=== PATIENT | female | born 1935 | race Caucasian/White ===

== ENCOUNTER 2016-11-07 20:17 | Emergency (ER) | payer MEDICARE ==
[2016-11-07 20:44] VITALS: BP 149/61
--- NOTE | 2016-11-07 21:58 | UC ---
Laceration HPI - HPI Summary HPI Summary: 81 yo female a/p laceration about 7 pm when her cat scratched her her tetanus is reportedly UTD she is right handed - History Of Current Complaint Chief Complaint: UCBiteInjury Stated Complaint: HAND INJURY Time Seen by Provider: 11/07/16 21:41 Hx Obtained From: Patient Laceration Location: Hand Mechanism Of Injury: Sharp Trauma Severity: Mild Pain Intensity: 2 Pain Scale Used: 0-10 Numeric Aggravating Factors: Nothing - Allergies/Home Medications Allergies/Adverse Reactions: Allergies Allergy/AdvReac Type Severity Reaction Status Date / Time Sulfa Drugs Allergy Unknown Unknown Verified 11/07/16 20:44 Reaction Details PMH/Surg Hx/FS Hx/Imm Hx Previously Healthy: Yes Cardiovascular History: Hypertension Respiratory History: COPD - Surgical History Surgical History: Yes Surgery Procedure, Year, and Place: hysterectomy, - Family History Known Family History: Positive: Hypertension - Social History Alcohol Use: None Substance Use Type: None Smoking Status (MU): Former Smoker - Immunization History Most Recent Tetanus Shot: 2017 Review of Systems Constitutional: Negative Skin: Negative Eyes: Negative ENT: Negative Respiratory: Negative Cardiovascular: Negative Gastrointestinal: Negative Genitourinary: Negative Motor: Negative Neurovascular: Negative Musculoskeletal: Negative Neurological: Negative Psychological: Negative All Other Systems Reviewed And Are Negative: Yes Physical Exam Triage Information Reviewed: Yes Appearance: Well-Appearing, No Pain Distress, Well-Nourished Vital Signs: Initial Vital Signs Temp 98.1 F 11/07/16 20:38 Pulse 97 11/07/16 20:38 Resp 12 11/07/16 20:38 BP 149/61 11/07/16 20:38 Pulse Ox 94 11/07/16 20:38 Eyes: Positive: Conjunctiva Clear ENT: Positive: Hearing grossly normal. Negative: Nasal congestion, Nasal drainage, Trismus, Muffled/hoarse voice Neck: Positive: Supple Respiratory: Positive: Lungs clear, Normal breath sounds, No respiratory distress, No accessory muscle use Cardiovascular: Positive: RRR, No Murmur Neurological: Positive: Alert Psychological Exam: Normal Skin Exam: Other - see image Laceration Repair - Laceration Repair 1 Description: Linear : No Repair Necessary Laceration Size After Repair: Length (cm) - 2, Width (mm) - 2, Depth (mm) - 2 Laceration Course/Dx - Course/Dx Course Of Treatment: pt told me she has a pencillin allergy so augmentin not prescribed - Differential Dx - Laceration/Wound Provider Diagnoses: laceration right hand -not sutured Discharge - Discharge Plan Condition: Stable Disposition: HOME Prescriptions: DOXYcycline CAP(*) [DOXYcycline 100MG CAP(*)] 100 mg PO BID #10 cap Patient Education Materials: Laceration Without Closure (ED) Referrals: La Kapoor MD [Primary Care Provider] - 5 Days Additional Instructions: gently clean twice daily with soap and water apply thin film of antibiotic ointment ( I like aquaphor healing ointment) non stick dressing recheck for concerns of infection Images Hands: 1 - laceration
== END 2016-11-07 22:08 | disposition home or self-care (01) ==
LOC: UCEAST 20:17
DX: S61.411A Laceration without foreign body of right hand, initial encounter (principal); W55.03XA Scratched by cat, initial encounter; Z88.2 Allergy status to sulfonamides; I10 Essential (primary) hypertension; J44.9 Chronic obstructive pulmonary disease, unspecified; Z87.891 Personal history of nicotine dependence
CPT/HCPCS: 99212; G0463

== ENCOUNTER 2017-09-12 10:50 | Emergency (ER) | payer MEDICARE ==
[2017-09-12 12:07] VITALS: BP 159/74
--- NOTE | 2017-09-12 12:33 | UC ---
Upper Extremity HPI - HPI Summary HPI Summary: 2 weeks of increasing pain in both shoulder, left > right, with severe restriction of range of motion. Had eval by Dr. Kapoor, labs done with normal sed rate, advised to take time off simvastatin. Pain and ache radiates to both forearms. Pain has been ongoing after being off statin for approximately one week. Sleep is poor, acetaminophen not very effective in pain control. - History of Current Complaint Chief Complaint: UCUpperExtremity Stated Complaint: BILATERAL ARM PAIN Time Seen by Provider: 09/12/17 12:25 Hx Obtained From: Patient Onset/Duration: Sudden Onset, Lasting Weeks - 2 Severity Initially: Moderate Severity Currently: Moderate Pain Intensity: 8 Location Of Pain: Is Diffuse - both shoulders/traps. Character: Throbbing, Stiffness Aggravating Factor(s): Movement, Lifting, Flexion, Extension, Internal/External Rotation, Abduction Alleviating Factor(s): Nothing Associated Signs And Symptoms: Positive: Weakness - Risk Factors DVT Risk Factors: Negative Septic Arthritis Risk Factor: Negative - Allergies/Home Medications Allergies/Adverse Reactions: Allergies Allergy/AdvReac Type Severity Reaction Status Date / Time Sulfa (Sulfonamide Allergy Unknown Verified 09/12/17 12:08 Antibiotics) Reaction Details Home Medications: Home Medications Albuterol HFA INHALER* [Ventolin HFA Inhaler*] 2 puff INH Q4H PRN 09/12/17 [ History Confirmed 09/12/17] Furosemide TAB* [Lasix TAB*] 20 mg PO DAILY PRN 09/12/17 [History Confirmed ] Tiotropium CAP.INH* [Spiriva CAP.INH*] 1 cap.inh INH DAILY 09/12/17 [History Confirmed 09/12/17] amLODIPine TAB* [Norvasc 5 mg TAB*] 5 mg PO DAILY 09/12/17 [History Confirmed ] PMH/Surg Hx/FS Hx/Imm Hx - Additional Past Medical History Additional PMH: history of thyroid nodules. Previously Healthy: No Cardiovascular History: Hypertension, Other - uses furosemide for ankle swelling on an as needed basis. Other Cardiovascular History: peripheral edema. Respiratory History: COPD - Surgical History Surgical History: Yes Surgery Procedure, Year, and Place: hysterectomy, - Family History Known Family History: Positive: Hypertension, Other - mother of cancer, unknown primary ? lymphoma; father had colon CA - Social History Occupation: Retired Lives: With Family Alcohol Use: None Substance Use Type: None Smoking Status (MU): Former Smoker - Immunization History Most Recent Tetanus Shot: 2017 Review of Systems Constitutional: Fatigue Skin: Negative Eyes: Negative ENT: Negative Respiratory: Negative Cardiovascular: Negative Gastrointestinal: Negative Genitourinary: Negative Motor: Negative Neurovascular: Negative Musculoskeletal: Arthralgia, Edema, Myalgia Neurological: Negative - no headache or visual change. Psychological: Negative Is Patient Immunocompromised?: No All Other Systems Reviewed And Are Negative: Yes Physical Exam Triage Information Reviewed: Yes Appearance: Ill-Appearing - looks chronically unwell, Pain Distress - mild to moderate. Vital Signs: Initial Vital Signs Temp 98.4 F 09/12/17 12:02 Pulse 77 09/12/17 12:02 Resp 14 09/12/17 12:02 BP 159/74 09/12/17 12:02 Pulse Ox 95 09/12/17 12:02 Eye Exam: Normal ENT: Positive: Pharynx normal, Other - no tendermess temporal arteries. Respiratory: Positive: Lungs clear, Normal breath sounds Cardiovascular: Positive: RRR, No Murmur Musculoskeletal: Positive: ROM Limited @ - right shoulder with abduction to ? 30 degrees, restricted all ranges, pain along joint line. Tenderness in traps, rhomboids, deltoid. Left shoulder with crepitus, mild resrtriction of rom. Neurological Exam: Normal Neurological: Positive: Alert, Muscle Tone Normal Psychological Exam: Normal Skin Exam: Normal Diagnostics - Laboratory Diagnostic Studies Completed/Ordered: Shoulder xray normal per ; awaiting radiology reading. Upper Extremity Course/Dx - Course Course Of Treatment: prednisone for possible PMR; followup with Dr. Kapoor to review labs and assess response. - Differential Dx/Diagnosis Differential Diagnosis/HQI/PQRI: Arthritis, Other - Adhesive capsulitis of right shoulder; polymyalgia rheumatica. Provider Diagnoses: polymyalgia rheumatica Discharge - Sign-Out/Discharge Documenting (check all that apply): Discharge/Admit/Transfer - Discharge Plan Condition: Stable Disposition: HOME Prescriptions: predniSONE TAB* [Deltasone TAB*] 20 mg PO DAILY #7 tab Patient Education Materials: Polymyalgia Rheumatica (ED), Adhesive Capsulitis ( ED) Referrals: La Kapoor MD [Primary Care Provider] - Additional Instructions: It is possible that you have polymyalgia rheumatica even without an increase in inflammatory markers. Additional lab testing has been done to help to make a diagnosis--these include C reactive protein, a creatine kinase (muscle enzyme released by inflamed muscles), and thyroid function (thyroid dysfunction can cause muscle weakness). A rapid response to moderate steroids is seen in cases of polymyalgiia. Begin use of prednisone 20mg once daily with food for the next 7 days. Take the first dose today with food; tomorrow change to taking the dose in the morning with food. Please re-arrange your visit with Dr. Kapoor, moving the date to around the 17 of September for reassessment. - Billing Disposition and Condition Condition: STABLE Disposition: HOME
--- NOTE | 2017-09-12 13:15 | RAD ---
INDICATION: Right shoulder pain COMPARISON: None TECHNIQUE: Routine frontal, Y and axial views were obtained. 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 There are findings of calcific tendinitis. IMPRESSION: ARTHRITIS. CALCIFIC TENDINITIS.
[2017-09-13 14:01] LABS: ABS Basophils 0.1 10^3/ul (0-0.2); ABS Eosinophils 0.2 10^3/ul (0-0.6); ABS Lymphocytes 1.5 10^3/ul (1.0-4.8); ABS Monocytes 0.5 10^3/ul (0-0.8); ABS Neutrophils 5.5 10^3/ul (1.5-7.7); ABS Nucleated RBC 0 10^3/ul; Eosinophil % 2.7 % (0-6); Hematocrit 45 % (35-47); Hemoglobin 14.9 g/dl (12.0-16.0); Lymphocyte % 19.5 % (25-47); Mean Corpuscular HGB Conc 33 g/dl (31-36); Mean Corpuscular Hemoglobin 30 pg (27-31); Mean Corpuscular Volume 91 fL (80-97); Mean Platelet Volume 8.9 um3 (7.4-10.4); Nucleated Red Blood Cells % 0.1; Platelet Count 229 10^3/ul (150-450); Red Blood Count 4.94 10^6/ul (4.0-5.4); Red Cell Distribution Width 13 % (10.5-15); White Blood Count 7.8 10^3/ul (3.5-10.8)
== END 2017-09-12 13:22 | disposition home or self-care (01) ==
LOC: UCCORT 10:50
DX: M35.3 Polymyalgia rheumatica (principal); Z88.2 Allergy status to sulfonamides; I10 Essential (primary) hypertension; J44.9 Chronic obstructive pulmonary disease, unspecified; Z87.891 Personal history of nicotine dependence
CPT/HCPCS: 36415; 82550; 84443; 85025; 86140; 99212; G0463